=== PATIENT | male | born 1980 | race American Indian/Alaskan Native ===

== ENCOUNTER 2019-07-29 12:47 | Emergency (ER) | payer SELFPAY ==
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
--- NOTE | 2019-07-29 14:00 | XRay Report ---
XR spine lumbosacral 2-3V INDICATION / CLINICAL INFORMATION: Low back pain. COMPARISON: None available. FINDINGS: BONES/JOINT(S): No acute fracture or subluxation. No significant degenerative changes. SOFT TISSUES: No significant abnormality. ADDITIONAL FINDINGS: None. Signer Name: Prince Cronin MD Signed: 07/29/2019 1:55 PM Workstation Name: [id number]
== END 2019-07-29 14:27 | disposition left against medical advice (07) ==
LOC: ED 12:47
DX: M54.5 Low back pain (principal); Z53.21 Procedure and treatment not carried out due to patient leaving prior to being seen by health care provider
CPT/HCPCS: 72100

== ENCOUNTER 2019-08-25 20:24 | Emergency (ER) | payer SELFPAY ==
[2019-08-25 20:40] VITALS: BP 129/80
[2019-08-25] MEDS ORDERED: BACITRACIN/POLYMYXIN B OINT 28.35 GM TP ONE (20:42)
[2019-08-25] MEDS ORDERED: TETANUS,DIPHTHERIA TOXOID ADULT 0.5 ML INJ IM ONE (20:42)
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
== END 2019-08-25 21:35 | disposition home or self-care (01) ==
LOC: ED 20:24
DX: S50.811A Abrasion of right forearm, initial encounter (principal); J45.909 Unspecified asthma, uncomplicated; Z79.2 Long term (current) use of antibiotics; Z79.899 Other long term (current) drug therapy; V49.59XA Passenger injured in collision with other motor vehicles in traffic accident, initial encounter; W22.12XA Striking against or struck by front passenger side automobile airbag, initial encounter; Y93.89 Activity, other specified; Y92.410 Unspecified street and highway as the place of occurrence of the external cause; Y99.8 Other external cause status
CPT/HCPCS: 90471; 90714; 99282